=== PATIENT | male | born 1940 | race Caucasian/White ===

== ENCOUNTER 2017-05-20 06:42 | Day surgery (SDC) | payer MEDICARE ==
[2017-05-18 09:42] VITALS: BP 107/62
[~2017-05-20] VITALS: Ht 193 cm; Wt 104.7 kg
[~2017-05-20 06:42] MED LIST: ASCO500T9 PO; ASPI-1005 PO; CYAN100092 PO; DEXT1DRO8 OU; DOCU100C33 PO; EMLA30C TP; HYDR-309 PO; MVIT PO; NABU500T3 PO; OMEG1CAP6 PO; RAMI5CAP21 PO; RANI150T7 PO; SAW450CA7 PO; SODIUM CHLORIDE 0.9% 1000ML 1,000 ML IV ONE; TAMS-1 PO; VITA400C70 PO
[2017-05-20 07:56] VITALS: BP 147/76
[2017-05-20] MEDS ORDERED: PROPOFOL 1000 MG/100 ML 100 ML IV ONE (09:11)
== END 2017-05-20 10:15 | disposition home or self-care (01) ==
LOC: DAH 06:42
PROVIDERS: ATTEND Internal Medicine Gastroenterology
DX: Z09 Encounter for follow-up examination after completed treatment for conditions other than malignant neoplasm (principal); Z86.010 Personal history of colon polyps; Z80.0 Family history of malignant neoplasm of digestive organs; Z79.899 Other long term (current) drug therapy; I10 Essential (primary) hypertension; E78.5 Hyperlipidemia, unspecified; Z98.890 Other specified postprocedural states; Z95.1 Presence of aortocoronary bypass graft; E66.9 Obesity, unspecified; K57.30 Diverticulosis of large intestine without perforation or abscess without bleeding
CPT/HCPCS: 93005; A4606; G0105; J2704; J7030

== ENCOUNTER → 2018-04-28 | Outpatient (CLI) | payer MEDICARE ==
[~2018-04-28] MED LIST changes: -ASPI-1005 PO; -DEXT1DRO8 OU; -EMLA30C TP; -HYDR-309 PO; +HYDR-4457 PO; +IOHEXOL-350 50ML VIAL IV ONE; -OMEG1CAP6 PO; -RAMI5CAP21 PO; +RAMI5CAP66 PO; -SAW450CA7 PO; -SODIUM CHLORIDE 0.9% 1000ML 1,000 ML IV ONE
== END | disposition home or self-care (01) ==
LOC: RAH 07:38
PROVIDERS: ATTEND Family Medicine
DX: M47.22 Other spondylosis with radiculopathy, cervical region (principal); M48.02 Spinal stenosis, cervical region; M50.223 Other cervical disc displacement at C6-C7 level; I70.90 Unspecified atherosclerosis
CPT/HCPCS: 72127; Q9967

== ENCOUNTER → 2019-03-13 | Outpatient (CLI) | payer MEDICARE ==
[~2019-03-13] MED LIST changes: -IOHEXOL-350 50ML VIAL IV ONE; +VITA-164 PO; -VITA400C70 PO
== END | disposition home or self-care (01) ==
LOC: SHCH 09:46
PROVIDERS: ATTEND Internal Medicine Cardiovascular Disease
DX: I71.4 Abdominal aortic aneurysm, without rupture (principal)
CPT/HCPCS: 93978

== ENCOUNTER 2020-12-16 16:59 | Emergency (ER) | payer MEDICARE ==
[~2020-12-16] VITALS: Ht 193 cm; Wt 97.5 kg
[~2020-12-16 16:59] MED LIST changes: +ASCO500T20 PO; -ASCO500T9 PO; +NABU-141 PO; -NABU500T3 PO
[2020-12-16] MEDS ORDERED: LIDOCAINE HCL 1% 20 ML VIAL INJ STA (17:26)
[2020-12-16] MEDS ORDERED: LIDOCAINE HCL 400MG/20ML VIAL ONE (17:36)
[2020-12-16] MEDS ORDERED: NEOMY SULF/BACITRA/POLYMYXIN B 1 EACH PACKET TP ONE (19:20)
[2020-12-16] MEDS ORDERED: CEPH500B PO (19:31)
[2020-12-16 19:46] VITALS: BP 132/74
== END 2020-12-16 19:45 | disposition home or self-care (01) ==
LOC: EDH 16:59
DX: S61.412A Laceration without foreign body of left hand, initial encounter (principal); J44.9 Chronic obstructive pulmonary disease, unspecified; Z88.1 Allergy status to other antibiotic agents; Z88.2 Allergy status to sulfonamides; Z79.1 Long term (current) use of non-steroidal anti-inflammatories (NSAID); Z79.899 Other long term (current) drug therapy; X58.XXXA Exposure to other specified factors, initial encounter; Y93.89 Activity, other specified; Y92.89 Other specified places as the place of occurrence of the external cause; Y99.8 Other external cause status
CPT/HCPCS: 12001; 73130; 99283; J3490

== ENCOUNTER 2021-08-27 23:26 | Emergency (ER) | payer MEDICARE ==
[~2021-08-27] VITALS: Ht 193 cm; Wt 86.2 kg
[~2021-08-27 23:26] MED LIST changes: +CEPH500B PO
[2021-08-27 23:27] VITALS: BP 134/82
[2021-08-28] LABS: APPEARANCE,URINE CLEAR (CLEAR); BILIRUBIN,URINE NEGATIVE (NEGATIVE); COLOR,URINE YELLOW (YELLOW); GLUCOSE, URINE (UA) NEGATIVE (NEGATIVE); KETONES,URINE NEGATIVE (NEGATIVE); LEUKOCYTE ESTERASE ,URINE NEGATIVE (NEGATIVE); NITRATE,URINE NEGATIVE (NEGATIVE); OCCULT BLOOD,URINE MODERATE (NEGATIVE); PROTEIN,URINE NEGATIVE (NEGATIVE); UROBILINOGEN,URINE 0.2 mg/dL (0.2-1.0)
[2021-08-28 00:37] LABS: BASOPHILS % (AUTO) 0.6 % (0.0-5.0); EOSINOPHILS % (AUTO) 5.2 % (0.0-8.0); LYMPHOCYTES % (AUTO) 13.1 % (21.0-51.0); MEAN CORPUSCULAR HEMOGLOBIN 31.5 pg (27.0-33.0); MEAN CORPUSCULAR HGB CONC 34.2 g/dL (32.0-36.0); MEAN CORPUSCULAR VOLUME 92.1 fL (79-99); MONOCYTES % (AUTO) 8.7 % (3.0-13.0); NEUTROPHILS % (AUTO) 72.2 % (40.0-77.0); PLATELET COUNT (AUTO) 203 K/uL (130-400); RED BLOOD CELL COUNT(AUTO) 4.67 MIL/uL (4.50-6.20); RED CELL DISTRIBUTION WIDTH 13.7 % (11.0-15.5); WHITE BLOOD COUNT (AUTO) 8.3 K/uL (4.8-10.8)
[2021-08-28 00:39] LABS: BACTERIA,URINE None Seen /HPF (None Seen); MUCUS,URINE Few LPF (None Seen); SQUAMOUS EPITHELIAL CELL,UR Rare /HPF (0-2); WBC,URINE None Seen /HPF (0-1)
[2021-08-28 01:57] LABS: CREATININE 0.8 mg/dL (0.5-1.5); POTASSIUM 3.4 mmol/L (3.5-5.1)
== END 2021-08-28 02:41 | disposition home or self-care (01) ==
LOC: EDH 23:26
DX: R33.9 Retention of urine, unspecified (principal); I25.10 Atherosclerotic heart disease of native coronary artery without angina pectoris; J44.9 Chronic obstructive pulmonary disease, unspecified; E11.9 Type 2 diabetes mellitus without complications; E78.00 Pure hypercholesterolemia, unspecified; I10 Essential (primary) hypertension; Z88.2 Allergy status to sulfonamides; Z88.1 Allergy status to other antibiotic agents; Z79.899 Other long term (current) drug therapy
CPT/HCPCS: 36415; 51702; 80048; 81001; 85025

== ENCOUNTER 2021-09-08 03:42 | Emergency (ER) | payer MEDICARE ==
[~2021-09-08] VITALS: Ht 193 cm; Wt 86.2 kg
[2021-09-08 03:44] VITALS: BP 127/71
== END 2021-09-08 04:45 | disposition home or self-care (01) ==
LOC: EDH 03:42
DX: R33.9 Retention of urine, unspecified (principal); E78.00 Pure hypercholesterolemia, unspecified; I10 Essential (primary) hypertension; Z88.2 Allergy status to sulfonamides; Z88.7 Allergy status to serum and vaccine; Z88.1 Allergy status to other antibiotic agents; Z79.899 Other long term (current) drug therapy
CPT/HCPCS: 51702